=== PATIENT | male | born 1945 ===

== ENCOUNTER 2020-01-29 09:22 | Emergency (ER) | payer OTHER ==
[~2020-01-29] VITALS: Ht 170.2 cm; Wt 77.0 kg
[2020-01-29] MEDS ORDERED: CLON.5 PO (09:57)
[2020-01-29] MEDS ORDERED: QUET25TA PO (09:57)
[2020-01-29] MEDS ORDERED: PARO10TA89 PO (09:57)
[2020-01-29] MEDS ORDERED: DIVA125T32 PO (09:57)
[2020-01-29 10:34] LABS: BASOPHILS % (AUTO) 0.2 % (0.0-2.0); EOSINOPHILS % (AUTO) 0.3 % (1.0-6.0); HEMATOCRIT 46.9 % (41-53); HEMOGLOBIN 16.1 g/dL (13.5-17.5); LYMPHOCYTES # (AUTO) 0.9 K/uL (1.0-4.8); LYMPHOCYTES % (AUTO) 9.2 % (22.0-44.0); MEAN CORPUSCULAR HEMOGLOBIN 31.7 pg (26.0-34.0); MEAN CORPUSCULAR HGB CONC 34.3 G/dL (31.0-37.0); MEAN CORPUSCULAR VOLUME 93 fL (80-100); MONOCYTES # (AUTO) 0.4 K/uL (0.1-1.0); MONOCYTES % (AUTO) 4.5 % (2.0-9.0); NEUTROPHILS # (AUTO) 8.1 K/uL (1.8-7.7); PLATELET COUNT (AUTO) 208 K/uL (150-450); RED BLOOD CELL COUNT(AUTO) 5.07 MIL/uL (4.50-5.90); RED CELL DISTRIBUTION WIDTH 13.8 % (11.5-14.5)
[2020-01-29 10:35] LABS: NEUTROPHILS % (AUTO) 85.8 % (40.0-70.0)
[2020-01-29 10:48] LABS: ANION GAP 8 mmol/L (8-16); CALCIUM, TOTAL 9.8 mg/dL (8.8-10.5); CARBON DIOXIDE 26 mmol/L (22-29); CHLORIDE 99 mmol/L (98-107); GLUCOSE,RANDOM 118 mg/dL (70-110); POTASSIUM 4.4 mmol/L (3.5-5.1); SODIUM SERUM 133 mmol/L (136-145); UREA NITROGEN, BLOOD 13 mg/dL (7-18)
[2020-01-29 10:52] LABS: GLOMERULAR FILTR. RATE CALC > 60 mL/min (>60); SALICYLATE 2.4 mg/dL (2.8-20.0)
[2020-01-29 10:54] LABS: ALANINE AMINOTRANSFERASE 24 U/L (12-78); ALKALINE PHOSPHATASE 77 U/L (46-116); ASPARTATE AMINOTRANSFERASE 19 U/L (15-37); BILIRUBIN,TOTAL 0.7 mg/dL (0.1-1.0); TOTAL PROTEIN, SERUM 8.1 g/dL (6.4-8.2)
[2020-01-29 10:55] LABS: ACETAMINOPHEN < 2 mcg/mL (10-30)
[2020-01-29 14:13] LABS: APPEARANCE,URINE CLEAR (CLEAR); BILIRUBIN,URINE NEGATIVE (NEGATIVE); GLUCOSE, URINE (UA) NEGATIVE (NEGATIVE); KETONES,URINE TRACE mg/dL (NEGATIVE); LEUKOCYTE ESTERASE ,URINE NEGATIVE (NEGATIVE); NITRATE,URINE NEGATIVE (NEGATIVE); OCCULT BLOOD,URINE NEGATIVE (NEGATIVE); PROTEIN,URINE NEGATIVE (NEGATIVE); UROBILINOGEN,URINE 0.2 mg/dL (<=1.0)
[2020-01-29 14:14] LABS: AMPHET/METH SCREEN,URINE NEGATIVE (NEGATIVE); BARBITURATE SCREEN, URINE NEGATIVE (NEGATIVE); BENZODIAZEPINES SCREEN,URINE NEGATIVE (NEGATIVE); CANNABINOID SCREEN,URINE NEGATIVE (NEGATIVE); COCAINE SCREEN,URINE NEGATIVE (NEGATIVE); METHADONE SCREEN, URINE NEGATIVE (NEGATIVE); OPIATE SCREEN,URINE NEGATIVE (NEGATIVE)
[2020-01-29 14:16] LABS: PHENCYCLIDINE SCREEN,URINE NEGATIVE (NEGATIVE)
[2020-01-29 14:24] LABS: BACTERIA,URINE None Seen /HPF (None Seen); RBC,URINE None Seen /HPF (0-2); SQUAMOUS EPITHELIAL CELL,UR Rare /LPF (None Seen); WBC,URINE None Seen /HPF (0-5)
[2020-01-29 21:30] VITALS: BP 153/82
== END 2020-01-29 21:56 | disposition short-term general hospital (02) ==
LOC: EMS 09:26
DX: F03.90 Unspecified dementia, unspecified severity, without behavioral disturbance, psychotic disturbance, mood disturbance, and anxiety (principal); F20.9 Schizophrenia, unspecified; F17.220 Nicotine dependence, chewing tobacco, uncomplicated
CPT/HCPCS: 36415; 80053; 80307; 81001; 82140; 85025; 99285; G0481; G0480

== ENCOUNTER 2020-12-31 05:36 | Inpatient (IN) | payer MEDICARE, OTHER ==
[~2020-12-31] VITALS: Ht 167.6 cm; Wt 76.6 kg
[~2020-12-31 05:36] MED LIST: CLON-592 PO; DIVA125T32 PO; PARO10TA89 PO; QUET25TA PO
[2020-12-31 06:41] LABS: BASOPHILS % (AUTO) 0.1 % (0.0-2.0); EOSINOPHILS % (AUTO) 0.3 % (1.0-6.0); HEMATOCRIT 45.5 % (41-53); HEMOGLOBIN 15.4 g/dL (13.5-17.5); LYMPHOCYTES # (AUTO) 0.9 K/uL (1.0-4.8); LYMPHOCYTES % (AUTO) 10.4 % (22.0-44.0); MEAN CORPUSCULAR HEMOGLOBIN 30.5 pg (26.0-34.0); MEAN CORPUSCULAR HGB CONC 33.9 G/dL (31.0-37.0); MEAN CORPUSCULAR VOLUME 90 fL (80-100); MONOCYTES # (AUTO) 0.3 K/uL (0.1-1.0); MONOCYTES % (AUTO) 3.9 % (2.0-9.0); PLATELET COUNT (AUTO) 194 K/uL (150-450); RED BLOOD CELL COUNT(AUTO) 5.06 MIL/uL (4.50-5.90); RED CELL DISTRIBUTION WIDTH 14.3 % (11.5-14.5)
[2020-12-31 06:43] LABS: COVID AG,FIA SOURCE NASOPHARYNGEAL
[2020-12-31 06:49] LABS: ANION GAP 11 mmol/L (8-16); CALCIUM, TOTAL 10.1 mg/dL (8.8-10.5); CARBON DIOXIDE 24 mmol/L (22-29); CHLORIDE 101 mmol/L (98-107); CREATININE 1.15 mg/dL (0.60-1.30); GLUCOSE,RANDOM 170 mg/dL (70-110); NEUTROPHILS % (AUTO) 85.3 % (40.0-70.0); POTASSIUM 4.3 mmol/L (3.5-5.1); SODIUM SERUM 136 mmol/L (136-145); UREA NITROGEN, BLOOD 13 mg/dL (7-18)
[2020-12-31 06:50] LABS: GLOMERULAR FILTR. RATE CALC > 60 mL/min (>60)
[2020-12-31 06:56] LABS: ALANINE AMINOTRANSFERASE 39 U/L (12-78); ALBUMIN 4.4 g/dL (3.4-5.0); ALKALINE PHOSPHATASE 96 U/L (46-116); ASPARTATE AMINOTRANSFERASE 28 U/L (15-37); BILIRUBIN,TOTAL 1.7 mg/dL (0.1-1.0); TOTAL PROTEIN, SERUM 8.4 g/dL (6.4-8.2)
[2020-12-31 07:36] LABS: AMPHET/METH SCREEN,URINE NEGATIVE (NEGATIVE); BARBITURATE SCREEN, URINE NEGATIVE (NEGATIVE); BENZODIAZEPINES SCREEN,URINE POSITIVE (NEGATIVE); CANNABINOID SCREEN,URINE NEGATIVE (NEGATIVE); COCAINE SCREEN,URINE NEGATIVE (NEGATIVE); METHADONE SCREEN, URINE NEGATIVE (NEGATIVE); OPIATE SCREEN,URINE NEGATIVE (NEGATIVE)
[2020-12-31 07:38] LABS: PHENCYCLIDINE SCREEN,URINE NEGATIVE (NEGATIVE)
[2020-12-31 09:01] LABS: VALPROIC ACID < 3 mcg/mL (50-100)
[2020-12-31 09:27] LABS: APPEARANCE,URINE CLOUDY (CLEAR); BILIRUBIN,URINE NEGATIVE (NEGATIVE); GLUCOSE, URINE (UA) NEGATIVE (NEGATIVE); KETONES,URINE NEGATIVE (NEGATIVE); LEUKOCYTE ESTERASE ,URINE SMALL (NEGATIVE); NITRATE,URINE NEGATIVE (NEGATIVE); OCCULT BLOOD,URINE NEGATIVE (NEGATIVE); PH,URINE 7.5 (5.0-8.0); PROTEIN,URINE TRACE (NEGATIVE); UROBILINOGEN,URINE 0.2 mg/dL (<=1.0)
[2020-12-31 09:47] LABS: BACTERIA,URINE None Seen /HPF (None Seen); RBC,URINE None Seen /HPF (0-2); SQUAMOUS EPITHELIAL CELL,UR Few /LPF (None Seen); WBC,URINE 0-2 /HPF (0-5)
[2020-12-31] MEDS: LORazepam 2 MG TABLET PO PRN ×2 (13:13→20:09)
[2020-12-31] MEDS ORDERED: PNEUMOCOCCAL VACCINE POLYVALENT 0.5 ML VIAL [PPSV23] IM. ONE (13:30)
[2020-12-31 16:05] VITALS: BP 139/84
[2020-12-31] MEDS: CIPROFLOXACIN HCL 500 MG TABLET PO SCH (16:58)
[2020-12-31] MEDS: OLANZapine 10 MG TABLET PO SCH (21:46)
[2021-01-01] VITALS: BP 130/71
[2021-01-01] MEDS: CIPROFLOXACIN HCL 500 MG TABLET PO SCH ×2 (08:09→16:59)
[2021-01-01 08:13] VITALS: BP 138/87
[2021-01-01] MEDS ORDERED: MAGNESIUM HYDROXIDE SUSPENSION 30 ML UDCUP PO PRN (09:45)
[2021-01-01] MEDS ORDERED: BENZOCAINE/MENTHOL LOZENGE PO PRN (09:45)
[2021-01-01] MEDS ORDERED: OMEPRAZOLE 20 MG CAPSULE PO PRN (09:45)
[2021-01-01] MEDS ORDERED: ONDANSETRON HCL 4 MG TABLET PO PRN (09:45)
[2021-01-01] MEDS ORDERED: ALBUTEROL SULFATE HFA 90 MCG/PUFF 8 GM INHALER IH PRN (09:45)
[2021-01-01] MEDS ORDERED: CloNIDine HCL 0.1 MG TABLET PO PRN (09:45)
[2021-01-01] MEDS ORDERED: DOCUSATE SODIUM 100 MG CAPSULE PO PRN (09:45)
[2021-01-01] MEDS ORDERED: LOPERAMIDE HCL 2 MG CAPSULE PO PRN (09:45)
[2021-01-01] MEDS ORDERED: PETROLATUM,WHITE 28 GM JELLY TP PRN (09:45)
[2021-01-01] MEDS ORDERED: BACITRACIN 28 GM OINTMENT TP PRN (09:45)
[2021-01-01] MEDS ORDERED: MAG HYDROX/AL HYDROX/SIMETH ES 30 ML SUSPENSION UDCUP PO PRN (09:45)
[2021-01-01] MEDS ORDERED: ACETAMINOPHEN 325 MG TABLET PO PRN (09:45)
[2021-01-01] MEDS: LORazepam 2 MG TABLET PO PRN ×2 (11:09→20:05)
[2021-01-01 16:02] VITALS: BP 138/82
[2021-01-01] MEDS: OLANZapine 10 MG TABLET PO SCH (20:05)
[2021-01-02 04:50] VITALS: BP 144/97
[2021-01-02] MEDS: LORazepam 2 MG TABLET PO PRN ×2 (04:53→16:31)
[2021-01-02 08:35] VITALS: BP 156/102
[2021-01-02] MEDS: LISINOPRIL 20 MG TABLET PO SCH (08:59)
[2021-01-02] MEDS: CIPROFLOXACIN HCL 500 MG TABLET PO SCH ×2 (11:45→16:38)
[2021-01-02 16:17] VITALS: BP 150/78
[2021-01-02] MEDS: OLANZapine 10 MG TABLET PO SCH (20:04)
[2021-01-03 06:32] VITALS: BP 142/78
[2021-01-03 08:02] VITALS: BP 159/95
[2021-01-03] MEDS: LISINOPRIL 20 MG TABLET PO SCH (08:24)
[2021-01-03] MEDS: CIPROFLOXACIN HCL 500 MG TABLET PO SCH ×2 (08:24→16:06)
[2021-01-03 09:00] VITALS: BP 144/75
[2021-01-03] MEDS: LORazepam 2 MG TABLET PO PRN (10:35)
[2021-01-03 16:03] VITALS: BP 149/80
[2021-01-03] MEDS: OLANZapine 10 MG TABLET PO SCH (20:12)
[2021-01-03] MEDS: HALOPERIDOL 5 MG TABLET PO PRN (21:01)
[2021-01-04] MEDS: LORazepam 2 MG TABLET PO PRN ×3 (00:03→15:50)
[2021-01-04 00:29] VITALS: BP 129/69
[2021-01-04] MEDS: CIPROFLOXACIN HCL 500 MG TABLET PO SCH ×2 (08:11→16:19)
[2021-01-04] MEDS: LISINOPRIL 20 MG TABLET PO SCH (08:11)
[2021-01-04 08:26] VITALS: BP 143/81
[2021-01-04 09:30] VITALS: BP 140/79
[2021-01-04 11:29] VITALS: BP 177/97
[2021-01-04 16:08] VITALS: BP 143/82
[2021-01-04] MEDS: MEMANTINE HCL 5 MG TABLET PO SCH (17:00)
[2021-01-04] MEDS: DONEPEZIL HCL 10 MG TABLET PO SCH (21:00)
[2021-01-04] MEDS: OLANZapine 10 MG TABLET PO SCH (21:00)
[2021-01-05 01:36] VITALS: BP 136/87
[2021-01-05] MEDS: HALOPERIDOL 5 MG TABLET PO PRN (05:19)
[2021-01-05] MEDS: IBUPROFEN 600 MG TABLET PO PRN (05:19)
[2021-01-05 07:06] LABS: COVID AG,FIA SOURCE NASOPHARYNGEAL
[2021-01-05 08:05] VITALS: BP 150/83
[2021-01-05] MEDS: LORazepam 2 MG TABLET PO PRN ×3 (08:07→21:00)
[2021-01-05] MEDS: MEMANTINE HCL 5 MG TABLET PO SCH ×2 (08:07→16:50)
[2021-01-05] MEDS: CIPROFLOXACIN HCL 500 MG TABLET PO SCH (08:25)
[2021-01-05] MEDS: LISINOPRIL 20 MG TABLET PO SCH (08:25)
[2021-01-05 16:06] VITALS: BP 133/74
[2021-01-05] MEDS: DONEPEZIL HCL 10 MG TABLET PO SCH (20:38)
[2021-01-05] MEDS: OLANZapine 10 MG TABLET PO SCH (20:38)
[2021-01-06 00:21] VITALS: BP 149/87
[2021-01-06] MEDS: LISINOPRIL 20 MG TABLET PO SCH (08:14)
[2021-01-06] MEDS: MEMANTINE HCL 5 MG TABLET PO SCH ×2 (08:14→16:40)
[2021-01-06 08:33] VITALS: BP 150/82
[2021-01-06] MEDS: IBUPROFEN 600 MG TABLET PO PRN (09:20)
[2021-01-06] MEDS: LORazepam 2 MG TABLET PO PRN ×2 (09:24→15:59)
[2021-01-06 16:04] VITALS: BP 136/89
[2021-01-06] MEDS ORDERED: OLAN10TA3 PO (16:07)
[2021-01-06] MEDS ORDERED: MEMA5 PO (16:07)
[2021-01-06] MEDS ORDERED: DONE10TA8 PO (16:07)
[2021-01-06] MEDS ORDERED: LISI-662 PO (16:09)
== END 2021-01-06 17:45 | disposition home or self-care (01) | DRG 881 ==
LOC: EMS 05:37 → B2S 11:10 → EMS 11:46
PROVIDERS: ADMIT Psychiatry & Neurology Psychiatry; ATTEND Psychiatry & Neurology Psychiatry
DX: F32.9 Major depressive disorder, single episode, unspecified (principal); R45.851 Suicidal ideations; E11.9 Type 2 diabetes mellitus without complications; F02.80 Dementia in other diseases classified elsewhere, unspecified severity, without behavioral disturbance, psychotic disturbance, mood disturbance, and anxiety; F20.9 Schizophrenia, unspecified; F41.9 Anxiety disorder, unspecified; G30.9 Alzheimer's disease, unspecified; Z20.822 Contact with and (suspected) exposure to COVID-19; G47.00 Insomnia, unspecified; I10 Essential (primary) hypertension; K59.00 Constipation, unspecified; K21.9 Gastro-esophageal reflux disease without esophagitis; Z28.21 Immunization not carried out because of patient refusal; Z79.899 Other long term (current) drug therapy
CPT/HCPCS: 80053; 80164; 81001; 85025; 87426; 90732; 99285; G0480